=== PATIENT | female | born 1975 | race American Indian/Alaskan Native ===

== ENCOUNTER 2018-05-23 11:54 | Emergency (ER) | payer OTHER, MEDICAID ==
[2018-05-23 12:17] VITALS: BP 147/75
--- NOTE | 2018-05-23 12:19 | Emergency Department Report ---
Blank Doc - Documentation Documentation: 42 y o female presents with n/v/d x last night, no hx of unusual foods 4/10 intensity body aches LMP- 2 weeks ago no active vomiting, non tender abdomen ua/upt cbc,bmp zofran reevaluate
[2018-05-23 12:54] LABS: Basophils % (Auto) 0.3 % (0.0-1.8); Eosinophils % (Auto) 0.1 % (0.0-4.3); Hematocrit 41.9 % (30.3-42.9); Lymphocytes # (Auto) 0.4 K/mm3 (1.2-5.4); Lymphocytes % (Auto) 5.5 % (13.4-35.0); Mean Corpuscular HGB Conc 33 % (30-34); Mean Corpuscular Volume 93 fl (79-97); Monocytes # (Auto) 0.4 K/mm3 (0.0-0.8); Monocytes % (Auto) 5.4 % (0.0-7.3); Platelet Count 231 K/mm3 (140-440); Red Blood Count 4.51 M/mm3 (3.65-5.03); Red Cell Distribution Width 12.7 % (13.2-15.2)
[2018-05-23 13:24] LABS: Bilirubin,Urine NEG (Negative); Blood,Urine NEG (Negative); Color,Urine Yellow (Yellow); Mucus,Urine FEW /HPF; Protein,Urine <15 mg/dL mg/dL (Negative); Urobilinogen,Urine < 2.0 mg/dL (<2.0)
[2018-05-23 13:29] LABS: BUN/Creatinine Ratio 14; Blood Urea Nitrogen 7 mg/dL (7-17); Calcium 9.1 mg/dL (8.4-10.2); Hemolysis Index 7
[2018-05-23 13:30] LABS: HCG Qualitative,Urine Negative (Negative)
--- NOTE | 2018-05-23 14:39 | Emergency Department Report ---
Vomiting/Diarrhea - HPI Chief Complaint: Nausea/Vomiting/Diarrhea Stated Complaint: VOMITING/CHILLS/FEVER/HEADACHE Time Seen by Provider: 05/23/18 12:13 Duration: 1 Day Severity: moderate Nausea/Vomiting Severity: Moderate Diarrhea Severity: Moderate Pain Severity: None Symptoms: Yes Watery Diarrhea, Yes Able to Tolerate Fluids, No Bloody diarrhea, No Fever, No Recent Unusual Foods, No Recent Untreated Water, No Recent use of Antibiotics, No Family w/ Similar Symptoms, No Contacts w/ Similar Symptoms, No Rash, No Hematuria, No Recent URI Symptoms Other History: This is a 42-year-old female presents with nausea, vomiting, and diarrhea that started last night. Patient also complains that she rules, body aches, and headache. She states one of her coworkers had a stomach bug a few days ago but no other sick contacts. Patient states she has not taken anything for symptom relief. Her last menstrual period was 05/04/2018, A1, miscarriage. Patient reports a history of irregular menses. She reports 6-7 episodes of diarrhea and vomiting. She denies abdominal pain, frequency, urgency, dysuria, chest pain, shortness of breath, or dizziness. ED Review of Systems ROS: Stated complaint: VOMITING/CHILLS/FEVER/HEADACHE Other details as noted in HPI Constitutional: chills. denies: fever Respiratory: denies: cough, shortness of breath, wheezing Cardiovascular: denies: chest pain, palpitations Gastrointestinal: nausea, vomiting, diarrhea. denies: abdominal pain, constipation, hematemesis, melena, hematochezia Genitourinary: denies: urgency, dysuria, discharge Skin: denies: rash, lesions Neurological: denies: headache, weakness, paresthesias Psychiatric: denies: anxiety, depression ED Past Medical Hx - Past Medical History Additional medical history: childbirth x 2 - Surgical History Additional Surgical History: x 2 - Social History Smoking Status: Never Smoker Substance Use Type: Alcohol - Medications Home Medications: Home Medications Medication Instructions Recorded Confirmed Last Taken Type Acetaminophen/Codeine [Tylenol #3] 1 tab PO TID PRN #15 tab 01/10/15 Unknown Rx Clindamycin [Clindamycin CAP] 300 mg PO Q8H #21 cap 01/10/15 Unknown Rx Ibuprofen [Motrin] 800 mg PO Q8HR PRN #60 tablet 01/10/15 Unknown Rx Loperamide HCl [Imodium A-D] 2 mg PO DAILY PRN #14 tablet 05/23/18 Unknown Rx Ondansetron [Zofran Odt] 4 mg PO Q8HR PRN #12 tab.rapdis 05/23/18 Unknown Rx Vomiting Diarrhea Exam - Exam General: Vital signs noted. No distress. Alert and acting appropriately. HEENT: Yes Pharyngeal Erythema (erythematous posterior pharynx, uvula midline), Yes Moist Mucous Membranes, No Pharyngeal Exudates, No Rhinorrhea, No Conjuctival Injection, No Frontal Tenderness, No Maxillary Tenderness Neck: No Adenopathy, No Rigidity Lungs: Yes Clear Lung Sounds, Yes Good Air Exchange, No Wheezes, No Stridor, No Cough, No Nasal Flaring, No Retractions, No Use of Accessory Muscles Heart exam: Regular: Yes, Murmur: No, Tachycardia: No Abdomen: Tenderness: No, Peritoneal Signs: No, Distention: No, Hyperactive Bowel sounds: No Skin exam: Rash: No, Edema: No, Normal turgor: Yes Neurologic: Alert and oriented, no deficits. Musculoskeletal: Unremarkable. ED Course Vital Signs 05/23/18 12:15 Temperature 98.8 F Pulse Rate 74 Respiratory 18 Rate Blood Pressure 147/75 O2 Sat by Pulse 96 Oximetry ED Medical Decision Making - Lab Data Result diagrams: 05/23/18 12:36 05/23/18 12:36 Lab Results 05/23/18 05/23/18 05/23/18 Range/Units 12:36 12:36 12:52 WBC 6.9 (4.5-11.0) K/mm3 RBC 4.51 (3.65-5.03) M/mm3 Hgb 14.0 (10.1-14.3) gm/dl Hct 41.9 (30.3-42.9) % MCV 93 (79-97) fl MCH 31 (28-32) pg MCHC 33 (30-34) % RDW 12.7 L (13.2-15.2) % Plt Count 231 (140-440) K/mm3 Lymph % (Auto) 5.5 L (13.4-35.0) % [place] % (Auto) 5.4 (0.0-7.3) % Eos % (Auto) 0.1 (0.0-4.3) % Baso % (Auto) 0.3 (0.0-1.8) % Lymph # 0.4 L (1.2-5.4) K/mm3 [place] # 0.4 (0.0-0.8) K/mm3 Eos # 0.0 (0.0-0.4) K/mm3 Baso # 0.0 (0.0-0.1) K/mm3 Seg Neutrophils % 88.7 H (40.0-70.0) % Seg Neutrophils # 6.1 (1.8-7.7) K/mm3 Sodium 141 (137-145) mmol/L Potassium 3.8 (3.6-5.0) mmol/L Chloride 98.8 (98-107) mmol/L Carbon Dioxide 24 (22-30) mmol/L Anion Gap 22 mmol/L BUN 7 (7-17) mg/dL Creatinine 0.5 L (0.7-1.2) mg/dL Estimated GFR > 60 ml/min BUN/Creatinine Ratio 14 % Glucose 113 H (65-100) mg/dL Calcium 9.1 (8.4-10.2) mg/dL Amylase 27 (27-131) units/L Lipase 10 L (13-60) units/L Urine Color Yellow (Yellow) Urine Turbidity Clear (Clear) Urine pH 5.0 (5.0-7.0) Ur Specific [place] 1.020 (1.003-1.030) Urine Protein <15 mg/dl (Negative) mg/dL Urine Glucose (UA) Neg (Negative) mg/dL Urine Ketones Neg (Negative) mg/dL Urine Blood Neg (Negative) Urine Nitrite Neg (Negative) Urine Bilirubin Neg (Negative) Urine Urobilinogen < 2.0 (<2.0) mg/dL Ur Leukocyte Esterase Neg (Negative) Urine WBC (Auto) 1.0 (0.0-6.0) /HPF Urine RBC (Auto) 1.0 (0.0-6.0) /HPF U Epithel Cells (Auto) 6.0 (0-13.0) /HPF Urine Mucus Few /HPF Urine HCG, Qual Negative (Negative) - Medical Decision Making This is a 42 y.o. female that presents with nausea, vomiting, and diarrhea that started yesterday. Patient is stable and was examined by me. Vitals stable. Obtained CMP, CBC, lipase, urine hCG, & UA. All labs are unremarkable. Start imodium and zofran for gastritis. Discussed plan with patient and agreed to plan. No further questions noted by the patient. Discharged home in stable condition. Follow up with PCP in 2-3 days. Critical care attestation.: If time is entered above; I have spent that time in minutes in the direct care of this critically ill patient, excluding procedure time. ED Disposition Clinical Impression: Nausea, vomiting and diarrhea, Gastroenteritis Disposition: TO HOME OR SELFCARE Is pt being admited?: No Does the pt Need Aspirin: No Condition: Stable Instructions: Acute Nausea and Vomiting (ED), Gastroenteritis (ED) Additional Instructions: Frequent hand washing is important to reduce spread. Prompt disinfection of contaminated surfaces with household chlorine bleach- based hvac residential service technician and washing of soiled clothing and bedding should be advised. If food or water is thought to be contaminated, it should be avoided. Increase fluid intake. Drinks high in sugars such as carbonated soft drinks, fruit juice, and highly sugared liquids should be avoided. Prescriptions: Loperamide HCl [Imodium A-D] 2 mg PO DAILY PRN #14 tablet PRN Reason: Diarrhea Ondansetron [Zofran Odt] 4 mg PO Q8HR PRN #12 tab.rapdis PRN Reason: Nausea And Vomiting Referrals: JUSTINE WHIPPLE [Primary Care Provider] - 3-5 Days [facility] [Provider Group] - 3-5 Days [facility] [Provider Group] - 3-5 Days [facility] [Provider Group] - 3-5 Days Forms: Work/School Release Form(ED) Time of Disposition: 14:42
== END 2018-05-23 14:59 | disposition home or self-care (01) ==
LOC: ED 11:54
DX: K52.9 Noninfective gastroenteritis and colitis, unspecified (principal)
CPT/HCPCS: 36415; 80048; 81001; 81025; 82150; 83690; 85025

== ENCOUNTER 2020-10-23 15:44 | Emergency (ER) | payer MEDICAID, OTHER ==
[2020-10-23 16:12] VITALS: BP 157/94
[2020-10-23] MEDS ORDERED: KETOROLAC 60 MG/2 ML INJ IM ONE (17:00)
--- NOTE | 2020-10-23 17:05 | Emergency Department Report ---
HPI - General Chief Complaint: Dental/Oral Time Seen by Provider: 10/23/20 17:00 - HPI HPI: Room 4 The patient is a 45-year-old female present with a chief complaint of dental pain and facial swelling. The patient states she developed dental pain last night and when she awakened she had swelling to the right side of her face. Patient states this has been happening to her intermittently over the past 6 months she just has not been able to make it to the dentist yet. Patient denies any history of fever. Patient drove herself to the emergency department there are no visitors present ED Past Medical Hx - Past Medical History Previous Medical History?: Yes Additional medical history: childbirth x 2, HTN during - Surgical History Past Surgical History?: Yes Additional Surgical History: x 2 - Family History Family history: no significant - Social History Smoking Status: Current Some Day Smoker Substance Use Type: None (Denies illicit drug use), Alcohol (Occasional) - Medications Home Medications: Home Medications Medication Instructions Recorded Confirmed Last Taken Type Acetaminophen/Codeine [Tylenol #3] 1 tab PO TID PRN #15 tab 01/10/15 Unknown Rx Clindamycin [Clindamycin CAP] 300 mg PO Q8H #21 cap 01/10/15 Unknown Rx Ibuprofen [Motrin] 800 mg PO Q8HR PRN #60 tablet 01/10/15 Unknown Rx Loperamide HCl [Imodium A-D] 2 mg PO DAILY PRN #14 tablet 05/23/18 Unknown Rx Ondansetron [Zofran Odt] 4 mg PO Q8HR PRN #12 tab.rapdis 05/23/18 Unknown Rx Amoxicillin/Potassium Clav 1 each PO BID #20 tablet 10/23/20 Unknown Rx [Augmentin 875-125 Tablet] HYDROcodone/APAP 5-325 [[place] 1 - 2 each PO Q6HR PRN #14 tablet 10/23/20 Unknown Rx 5/325] Ibuprofen [Motrin 800 MG tab] 800 mg PO Q8HR PRN #20 tablet 10/23/20 Unknown Rx ED Review of Systems ROS: Stated complaint: SWOLLEN JAW/ TOOTH PAIN Other details as noted in HPI Constitutional: denies: fever ENT: dental pain Respiratory: no symptoms reported Cardiovascular: denies: chest pain Endocrine: no symptoms reported Gastrointestinal: denies: abdominal pain Genitourinary: denies: dysuria Musculoskeletal: denies: back pain Neurological: denies: headache Physical Exam - Physical Exam Vital Signs: Vital Signs 10/23/20 16:05 Temperature 99.4 F Pulse Rate 66 Respiratory 20 Rate Blood Pressure 157/94 O2 Sat by Pulse 99 Oximetry Physical Exam: GENERAL: The patient is well-developed well-nourished female sitting on stretcher not appearing to be in acute distress. [] HEENT: Normocephalic. Atraumatic. Extraocular motions are intact. Obvious swelling to the right facial/cheek NECK: Supple. No meningitic signs are noted. There is tender right cervical adenopathy CHEST/LUNGS: Clear to auscultation. There is no respiratory distress noted. HEART/CARDIOVASCULAR: Regular. There is no tachycardia. There is no gallop rub or murmur. ABDOMEN: Abdomen is soft, nontender. Patient has normal bowel sounds. There is no abdominal distention. SKIN: There is no rash. There is no edema. There is no diaphoresis. NEURO: The patient is awake, alert, and oriented. The patient is cooperative. The patient has no focal neurologic deficits. The patient has normal speech. GCS 15 MUSCULOSKELETAL: There is no evidence of acute injury. ED Course Vital Signs 10/23/20 16:05 Temperature 99.4 F Pulse Rate 66 Respiratory 20 Rate Blood Pressure 157/94 O2 Sat by Pulse 99 Oximetry ED Medical Decision Making - Differential Diagnosis Dental abscess, dental caries, Critical care attestation.: If time is entered above; I have spent that time in minutes in the direct care of this critically ill patient, excluding procedure time. ED Disposition Clinical Impression: Dental abscess Disposition: DC- TO HOME OR SELFCARE Is pt being admited?: No Does the pt Need Aspirin: No Condition: Stable Instructions: Dental Abscess Additional Instructions: Return to the emergency department should you develop worsening symptoms, inability to tolerate food or liquids, high fever or any other concerns Prescriptions: Amoxicillin/Potassium Clav [Augmentin 875-125 Tablet] 1 each PO BID #20 tablet Ibuprofen [Motrin 800 MG tab] 800 mg PO Q8HR PRN #20 tablet PRN Reason: Pain, Moderate (4-6) HYDROcodone/APAP 5-325 [[place] 5/325] 1 - 2 each PO Q6HR PRN #14 tablet PRN Reason: Pain Referrals: [facility] [Outside] - 3-5 Days Time of Disposition: 17:04
== END 2020-10-23 17:28 | disposition home or self-care (01) ==
LOC: ED 15:44
DX: K04.7 Periapical abscess without sinus (principal); F17.200 Nicotine dependence, unspecified, uncomplicated; Z98.890 Other specified postprocedural states; Z79.899 Other long term (current) drug therapy
CPT/HCPCS: 96372; 99282; J1885